=== PATIENT | male | born 1950 | race Caucasian/White ===

== ENCOUNTER 2021-11-05 01:09 | Day surgery (SDC) | payer OTHER, SELFPAY ==
[2021-10-20 10:59] VITALS: BMI 36.1
--- NOTE | 2021-11-04 15:39 | WPDANESEPPF ---
Anes - Initial Pre Proc Eval Procedure: Operation Date: 11/05/21 09:15 Proposed Procedures p Screening Colonoscopy - Adilson Islas MD Date/Time: 11/04/21 15:39 Surgeon: Adilson Islas MD Pre Op Diagnosis: hx of colon polyps Patient Data Age: 71 Gender: M Height: 1.83 m Weight: 121 kg Allergies Allergy/AdvReac Type Severity Reaction Status Date / Time agomelatine Allergy SOB, Chest Verified 11/05/21 08:10 tightness amoxicillin Allergy Other, Verified 11/05/21 08:10 patient not sure, rosuvastatin [From Crestor] Allergy Angioedema Verified 11/05/21 08:10 and Muscle pain Home Medications Medication Instructions Recorded Confirmed Type diazepam 5 mg tablet 1 tablet PO DAILY PRN Anxiety 10/20/21 11/05/21 History metoprolol succinate 100 mg 100 tablet PO DAILY 10/20/21 11/05/21 History tablet,extended release 24 hr Patient hx anesthesia problems: none Family hx anesthesia problems: none Results Review: All pre-operative results and documents have been reviewed as part of the pre-operative evaluation. [facility] Past Medical History Medical History (Updated 11/05/21 @ 09:12 by Adilson Islas MD) Anxiety BPH (benign prostatic hyperplasia) Hypertension HEATHER (obstructive sleep apnea) CPAP Palpitation Surgical History Surgical History (Updated 11/04/21 @ 15:40 by Gregory Nguyễn DO) History of appendectomy Social History Social History Smoking status: Never smoker Substance use type: does not use Living arrangements: alone Spiritual care concerns: No Anes - Eval Final PreProcedure Day of Procedure 11/04/21 15:39 Patient weight: obese Heart: regular rate and rhythm Lungs: clear to auscultation Airway: Mallampati scale class II Neurological: alert and oriented Last oral intake: >/= 8 hours ASA classification: III Emergent: no Anesthetic plan: proceed Anesthesia type and monitoring: general GIVS and standard monitoring Results Review: All pre-operative results and documents have been reviewed as part of the pre-operative evaluation. Informed Consent: The patient's anesthetic plan and its attendant risks and benefits were discussed with the patient/family/POA. Questions were solicited and answers provided to the satisfaction of the patient/family/POA.
[2021-11-05 08:11] VITALS: BP 144/74; PULSE 64; RESP 20; TEMP 36.2; O2SAT 97
[2021-11-05] MEDS: LACTATED RINGERS 1,000 ML 150 ML IV CONT (08:21)
--- NOTE | 2021-11-05 09:11 | WPDGICN ---
Assessment and Plan Assessment and plan (1) History of colon polyps: Code(s): Z86.010 - Personal history of colonic polyps Status: Acute Assessment and Plan: Patient gives a history of previous colon polyps performed elsewhere. He is somewhat unclear as to how long ago this was identified. Surveillance colonoscopy advised at this time. (2) Family history of colon cancer in mother: Code(s): Z80.0 - Family history of malignant neoplasm of digestive organs Status: Acute Assessment and Plan: Patient gives a history of colon cancer in his mother. Plan is for surveillance colonoscopy now consider this at 5 year intervals. GI Consult Note Consult date/time: 11/05/21 09:11 Reason for consult: Colon polyps. HPI: James Downey is a 71 year old male Presents for screening colonoscopy. Patient relates a history of prior colon polyps on previous examinations. Patient has had these performed elsewhere. He reports that his mother had colon cancer. His grandfather had cancer of the stomach. Patient states his been sometime since last examination. He reports a history of IBS and tendency towards constipation. Previously had good results when taking Metamucil but he has not done this regularly recently. He denies any bleeding or weight loss. Review of Systems Review of Systems: Review of systems noncontributory. [facility] Past Medical History Medical History (Updated 11/05/21 @ 09:12 by Adilson Islas MD) Anxiety BPH (benign prostatic hyperplasia) Hypertension HEATHER (obstructive sleep apnea) CPAP Palpitation Surgical History Surgical History (Updated 11/04/21 @ 15:40 by Gregory Nguyễn DO) History of appendectomy Social History Social History Smoking status: Never smoker Substance use type: does not use Living arrangements: alone Spiritual care concerns: No Meds Home Medications and Allergies Home Medications Medication Instructions Recorded Confirmed Type diazepam 5 mg tablet 1 tablet PO DAILY PRN Anxiety 10/20/21 11/05/21 History metoprolol succinate 100 mg 100 tablet PO DAILY 10/20/21 11/05/21 History tablet,extended release 24 hr Allergies Allergy/AdvReac Type Severity Reaction Status Date / Time agomelatine Allergy SOB, Chest Verified 11/05/21 08:10 tightness amoxicillin Allergy Other, Verified 11/05/21 08:10 patient not sure, rosuvastatin [From Crestor] Allergy Angioedema Verified 11/05/21 08:10 and Muscle pain Vital Signs Vital Signs - 24 hr 11/05/21 08:11 Temperature 97.2 F L Pulse Rate 64 Respiratory Rate 20 Blood Pressure 144/74 H Pulse Oximetry 97 Oxygen Delivery Room Air Exam Narrative: Physical exam reveals patient to be alert. Vital signs stable. HEENT exam is unremarkable. Patient is anicteric. Lungs are clear to auscultation and percussion. Heart is without murmur or extra sounds. Abdominal exam bowel sounds are present soft nontender with no organomegaly. Digital external rectal exam is normal.
[2021-11-05 09:48] VITALS: BP 92/65; PULSE 56; RESP 17; O2SAT 95
[2021-11-05 09:58] VITALS: BP 106/86; PULSE 52; RESP 19; O2SAT 95
[2021-11-05 10:08] VITALS: BP 124/78; PULSE 54; RESP 15; O2SAT 99
== END 2021-11-05 10:21 | disposition home or self-care (01) ==
PROVIDERS: PCP Family Medicine; Visit Provider Internal Medicine Gastroenterology
PROC: 0DJD8ZZ Inspection of Lower Intestinal Tract, Via Natural or Artificial Opening Endoscopic (ICD-10-PCS; CPT 45378; principal; 2021-11-05 09:15)
DX: Z12.11 Encounter for screening for malignant neoplasm of colon (principal); D12.5 Benign neoplasm of sigmoid colon; K64.8 Other hemorrhoids; K57.30 Diverticulosis of large intestine without perforation or abscess without bleeding; Z80.0 Family history of malignant neoplasm of digestive organs; I10 Essential (primary) hypertension; G47.33 Obstructive sleep apnea (adult) (pediatric); N40.0 Benign prostatic hyperplasia without lower urinary tract symptoms; F41.9 Anxiety disorder, unspecified; E66.9 Obesity, unspecified; Z68.34 Body mass index [BMI] 34.0-34.9, adult
CPT/HCPCS: 45385; 88305; J2704; J7120